=== PATIENT | female | born 1975 | race Caucasian/White ===

== ENCOUNTER 2021-09-15 09:39 | Outpatient (REF) | payer BC, SELFPAY ==
--- NOTE | 2021-09-15 08:30 | PAPFT_PTH ---
PATIENT: Haley Gayle LOC: [facility] U#:[id number] AGE/SX: 46/F ROOM: RE09/15/[address]: Renetta Colbert : 1975 BED: DIS: 09/15/2021 SPEC #: [id number] RECD: 09/15/21 18:25 STATUS: MARGARITO REAudra #: [id number] CAROLIN: 09/15/21 08:[address]: Renetta Colbert DEPT: [facility] Cytology RECD BY: Desi Quintanilla Tissues: 1 - CX/ENDOCX FOR PAP SMEARS Procedures: PAP THIN PREP/UVM Screening HPV DNA PROBE Comments: [id number]
[2021-09-15 14:41] LABS: HGB 13.6 g/dL (11.2-15.7); MCH 25.9 pg (27.0-33.0); MCHC 31.6 % (32.0-36.0); MCV 81.7 fL (80-95); MPV 12.6 fL (8.0-11.0); Platelet Count 202 10^3/uL (130-400); RBC 5.26 10^6/uL (3.93-5.22); RDW 12.4 % (11.7-14.6); RDW-SD 37.3 fL; WBC 5.19 10^3/uL (4.4-10.8)
[2021-09-15 15:17] LABS: ALT 24 U/L (14-59); AST 15 U/L (15-37); Anion Gap 8.5 mmol/L (3-11); BUN 13 mg/dL (7-18); CO2 27.5 mmol/L (21.0-32.0); CREATININE 0.5 mg/dL (0.55-1.02); Calcium 9.3 mg/dL (8.5-10.1); Calculated LDL 145 mg/dL (<100); Chloride 105 mmol/L (98-107); Cholesterol 205 mg/dL (<200); Glucose 98 mg/dL (74-106); HDL Cholesterol 45 mg/dL (40-60); Potassium 4.2 mmol/L (3.5-5.1); Sodium 141 mmol/L (136-145); Triglyceride 78 mg/dL (<150)
== END 2021-09-15 09:40 | disposition home or self-care (01) ==
LOC: NCHCN 09:39
PROVIDERS: PCP Nurse Practitioner Family; Visit Provider Nurse Practitioner Family
DX: Z00.00 Encounter for general adult medical examination without abnormal findings (principal); Z12.4 Encounter for screening for malignant neoplasm of cervix; Z11.51 Encounter for screening for human papillomavirus (HPV)
CPT/HCPCS: 80048; 80061; 85027; 88142; 84450; 84460; 87624

== ENCOUNTER 2021-11-05 02:02 | Outpatient (CLI) | payer BC, SELFPAY ==
--- NOTE | 2021-11-05 09:15 | DI.MAMMO_ITS ---
Exam(s) MAMMO SCREENING EXAM: MAMMO SCREENING CLINICAL HISTORY: SCREENING, Z12.31 TECHNIQUE: Bilateral full field digital CC and MLO mammographic images were obtained with 3D tomosyn thesis and utilizing computer aided detection (CAD). COMPARISON: None. FINDINGS: Masses/Architectural Distortion: None seen. Microcalcifications: No suspicious pleomorphic-type are seen. Skin Thickening/Nipple Retraction: None. IMPRESSION: 1. No significant interval change with no specific features of malignancy noted. 2. Unless there is more urgent need, screening mammography is recommended, as per [employer] guidelines. BI-RADS Category 1 - Negative Breast Density - Category B - Scattered areas of fibroglandular density Breast density category C or D implies that the patient has dense breast tissue. Dense breast tissue is very common and is not abnormal but dense breast tissue can make it harder to find cancer on a ma mmogram. Also, dense breast tissue may increase their breast cancer risk. This information about the result of the mammogram report was provided to the patient to raise their awareness. Use this report when you speak with the patient about their risks for breast cancer, which includes their family hist ory. At that time, you may recommend for more screening tests (Ultrasound or MRI) as they might be us eful based on their risk. A negative radiographic report should not delay biopsy if a dominant or clinically suspicious mass is present. Up to ten percent of cancers are not identified on mammography. A negative report may reinforce clinical impression. Adenosis and dense breasts may obscure an underlying neoplasm. False positive reports average 6 to 10%. Patient will receive a letter notifying them of these results.
== END 2021-11-05 02:22 ==
PROVIDERS: PCP Nurse Practitioner Family; Visit Provider Nurse Practitioner Family
DX: Z12.31 Encounter for screening mammogram for malignant neoplasm of breast (principal)
CPT/HCPCS: 77063; 77067

== ENCOUNTER 2022-05-18 11:25 | Outpatient (REF) | payer BC, SELFPAY | END 2022-05-18 11:26 | disposition home or self-care (01) | LOC: LBN 11:25 | PROVIDERS: PCP Nurse Practitioner Family; Visit Provider Physician Assistant Medical | DX: J02.9 Acute pharyngitis, unspecified (principal) | CPT/HCPCS: 87070 ==

== ENCOUNTER 2022-05-25 15:59 | Outpatient (REF) | payer BC, SELFPAY ==
[2022-05-27 10:54] LABS: Measles IgG Antibody Positive (See Note); Mumps Antibody IgG Positive (See Note)
[2022-05-27 10:57] LABS: Rubella IgG Ab (UVM) Positive (See Note)
[2022-06-01 20:17] LABS: Polio 1 Titer 1:32
[2022-06-02 19:18] LABS: B. pertussis IgG Negative (Negative); B. pertussis Value <5.00 IU/mL
== END 2022-05-25 16:00 | disposition home or self-care (01) ==
LOC: NCHCN 15:59
PROVIDERS: PCP Nurse Practitioner Family; Visit Provider Family Medicine
DX: Z13.89 Encounter for screening for other disorder (principal); Z11.59 Encounter for screening for other viral diseases; Z01.84 Encounter for antibody response examination
CPT/HCPCS: 86615; 86658; 86735; 86762; 86765

== ENCOUNTER 2022-09-21 13:24 | Outpatient (REF) | payer BC, SELFPAY ==
[2022-09-21 15:28] LABS: HCT 46.4 % (36.0-46.0); HGB 15.3 g/dL (11.2-15.7); MCH 26.2 pg (27.0-33.0); MCV 79 fL (80-95); Platelet Count 226 10^3/uL (130-400); RBC 5.85 10^6/uL (3.93-5.22); RDW-SD 37.1 fL; WBC 6.88 10^3/uL (4.4-10.8)
[2022-09-21 15:36] LABS: ALT 20 U/L (14-59); AST 18 U/L (15-37); Albumin 3.6 g/dL (3.4-5.0); Alkaline Phosphatase 129 U/L (46-116); Anion Gap 7.6 mmol/L (3-11); BUN 12 mg/dL (7-18); Bilirubin, Total 0.5 mg/dL (0.2-1.0); CO2 29.4 mmol/L (21.0-32.0); CREATININE 0.6 mg/dL (0.55-1.02); Calcium 9.2 mg/dL (8.5-10.1); Chloride 102 mmol/L (98-107); Estimated GFR 112.04 (mL/min/1.73m2); Glucose 95 mg/dL (74-106); Potassium 4.3 mmol/L (3.5-5.1); Sodium 139 mmol/L (136-145); Total Protein 7.1 g/dL (6.4-8.2)
[2022-09-21 15:47] LABS: Hemoglobin A1C 5.2 % (<5.7)
[2022-09-29 13:59] LABS: B. pertussis IgG Negative (Negative); B. pertussis Value 5.37 IU/mL
== END 2022-09-21 13:25 | disposition home or self-care (01) ==
LOC: NCHCN 13:24
PROVIDERS: PCP Nurse Practitioner Family; Visit Provider Nurse Practitioner Family
DX: Z00.00 Encounter for general adult medical examination without abnormal findings (principal)
CPT/HCPCS: 80053; 85027; 86615; 83036

== ENCOUNTER 2022-11-06 11:27 | Emergency (ER) | payer BC, SELFPAY ==
--- NOTE | 2022-11-06 11:30 | DI.RAD_ITS ---
Exam(s) XR CHEST 2V PA LATERAL EXAM: XR CHEST 2V PA LATERAL CLINICAL HISTORY: cough TECHNIQUE: 2D digital imaging was performed. COMPARISON: No exams were available for comparison FINDINGS: HEART: Normal size. Aorta: Not dilated. PULMONARY VASCULATURE: Normal. LUNGS: Clear. PLEURAL SPACE: No pleural effusion or pneumothorax. BONE:Unremarkable for age. IMPRESSION: No acute abnormality. DATA REPOSITORY: RADIATION DOSE DELIVERED:
[2022-11-06 11:34] VITALS: BP 165/79; PULSE 105; RESP 24; TEMP 37.2; O2SAT 97
--- NOTE | 2022-11-06 11:45 | ED.GENADUL_ITS ---
Discharge Plan Disposition Patient Disposition: Home Condition: Improving Discharge Details Clinical Impression: Acute bronchitis Primary Care Provider: Renetta Colbert ED Provider: Kevin Moreno Home Meds and New Rx's Prescriptions: New doxycycline hyclate 100 mg capsule 100 mg PO BID 9 Days Qty: 18 0RF Discharge Instructions Instructions: Acute Bronchitis (ED) Additional Instructions: Home to rest today. Small, frequent sips of fluids to maintain hydration. Take antibiotics as prescribed. You may be sensitive to sun and alcohol on this antibiotic. Return for any acute concerns. Medical Decision Making 47-year-old female with cough and congestion for 2 days with a history of similar for weeks time. [place] subjective fever at home but not documented. She has otherwise been well and notes a negative COVID test at home. Differential diagnosis includes bronchitis, pneumonia, viral syndrome. Patient had viral swabs obtained and is referred for chest x-ray which does not demonstrate pneumonia. Influenza and COVID testing negative. I will treat her for bronchitis with a course of doxycycline HPI General Date/Time Provider Initiated Documentation: 11/06/22 11:28 . Limitations to Documentation: no limitations . Information obtained by: patient . History of Present Illness 47 year old F presents to the emergency department with the chief complaint of Cough and congestion worse over 2 days, described as moderate, Quality is described as dull, and is localized to the chest. Patient started experiencing this day(s) and it has been intermittent. No relieving factors improve symptom(s), No exacerbating factors reported . Patient notes cough; denies fever/chills, shortness of breath and syncope. Patient did receive the following treatments prior to arrival, none Related Data Home Medications Medication Instructions Recorded Confirmed doxycycline hyclate 100 mg capsule 100 mg PO BID 9 days #18 caps 11/06/22 Previous Rx's Medication Instructions Recorded doxycycline hyclate 100 mg capsule 100 mg PO BID 9 days #18 caps 11/06/22 Allergies Allergy/AdvReac Type Severity Reaction Status Date / Time No Known Allergies Allergy Unverified 11/06/22 11:38 General Stated Complaint: RespSymp RUBEN: 3 Review of Systems Narrative: 6 systems reviewed and otherwise negative PFSH All Active Problems (Updated 11/06/22 @ 12:41 by Kevin Moreno MD) Acute bronchitis (Acute) Social History Smoking/Tobacco Use Status: Never Smoking risk assessment performed?: Yes Alcohol Intake: current Alcohol Intake frequency: a few times a month Drug use: Never Substance use type: does not use Do you feel safe at home: Yes Do you feel safe in your relationship?: Yes Exam Narrative Exam Narrative: GEN: awake, alert, oriented 3. Pleasant, well groomed, interactive. HEAD: Normocephalic, atraumatic ENT: Mucous membranes moist, oropharynx slightly erythematous, no exudate or swelling present, tympanic membranes clear bilaterally, external ear exam unremarkable EYES: PERRL, EOMI NECK: Full ROM, no ALIN, no menigismus CHEST/RESP: Nontender, clear to auscultation bilateral, no wheeze/rhonchi/rales CARDIOVASCULAR: RRR, no murmur, rub eliezer. 2+ Rad pulse bilateral ABDOMEN: Soft, nontender, no mass. +Bowel sounds EXT: Full ROM, no edema, no rash Neuro: Grossly normal neurologic exam, conversant, interactive. Psych: Speech fluent, thoughts congruent, affect normal Course Vital Signs Vital signs: Vital Signs Temperature 37.2 C 11/06/22 11:34 Pulse 105 H 11/06/22 11:34 Respiratory Rate 24 11/06/22 11:34 Blood Pressure 165/79 H 11/06/22 11:34 Pulse Oximetry 97 11/06/22 11:34 Temperature 37.2 C 11/06/22 11:34 Temperature Source Tympanic 11/06/22 11:34 Pulse 105 H 11/06/22 11:34 Respiratory Rate 24 11/06/22 11:34 Respiratory Effort Short of Breath 11/06/22 11:43 Respiratory Depth Normal 11/06/22 11:43 Blood Pressure 165/79 H 11/06/22 11:34 Blood Pressure Position Sitting 11/06/22 11:34 Pulse Oximetry 97 11/06/22 11:34 Oxygen Delivery Method Room Air 11/06/22 11:34 Oxygen Flow Rate 0 11/06/22 11:34 Pain Level 9 11/06/22 11:34
--- NOTE | 2022-11-06 12:19 | DI.VRAD_ITS ---
PROCEDURE INFORMATION: Exam: XR Chest Exam date and time: 11/06/2022 11:56 AM Age: 47 years old Clinical indication: Cough TECHNIQUE: Imaging protocol: Radiologic exam of the chest..No history of trauma or recent surgery is provided. 2image(s) are provided. Views: 2 views. COMPARISON: No relevant prior studies available. FINDINGS: Lungs: No lobar consolidation is appreciated. Pleural spaces: No pneumothorax or pleural effusion is appreciated. Heart/Mediastinum: The cardiomediastinal silhouette is normal. No cardiac decompensation is appreciated. Diaphragm: There is slight asymmetric right hemidiaphragm elevation. Bones/joints: Osseous alignment is maintained.No displaced fracture or dislocation is appreciated. There is some mild chronic degeneration of the acromioclavicular junctions with similar overall glenohumeral alignment. Soft tissues: No radiopaque foreign body or subcutaneous emphysema is appreciated. IMPRESSION: No lobar consolidation is appreciated.No acute cardiopulmonary changes are appreciated. Dictated and Authenticated by: Leonidas Jimenez MD. Ordering:RISHABH Brown MD
[2022-11-06 12:28] LABS: COVID-19 PCR Negative (Negative); Influenza A PCR Negative (Negative); Influenza B PCR Negative (Negative); RSV PCR Negative (Negative)
[2022-11-06 12:29] LABS: Source Nasopharynx
[2022-11-06] MEDS: Doxycycline Hyclate 100 MG, 2 CAPS/BTL PO (13:20)
== END 2022-11-06 13:21 | disposition home or self-care (01) ==
PROVIDERS: Emergency Provider Emergency Medicine; PCP Nurse Practitioner Family
DX: J20.9 Acute bronchitis, unspecified (principal); Z20.822 Contact with and (suspected) exposure to COVID-19
CPT/HCPCS: 87637; 99283; 71046; 99284

== ENCOUNTER 2023-10-03 13:53 | Outpatient (REF) | payer BC, SELFPAY ==
[2023-10-03 14:38] LABS: HGB 14.4 g/dL (11.2-15.7); MCH 26.5 pg (27.0-33.0); MCV 83 fL (80-95); MPV 11.4 fL (8.0-11.0); Platelet Count 264 10^3/uL (130-400); RBC 5.44 10^6/uL (3.93-5.22); RDW 13.5 % (11.7-14.6); RDW-SD 40.8 fL; WBC 7.43 10^3/uL (4.4-10.8)
[2023-10-03 15:15] LABS: ALT 28 U/L (14-59); AST 17 U/L (15-37); Albumin 3.6 g/dL (3.4-5.0); Alkaline Phosphatase 95 U/L (46-116); Anion Gap 10.3 mmol/L (3-11); BUN 14 mg/dL (7-18); Bilirubin, Total 0.4 mg/dL (0.2-1.0); CO2 28.7 mmol/L (21.0-32.0); CREATININE 0.8 mg/dL (0.55-1.02); Calcium 9.1 mg/dL (8.5-10.1); Calculated LDL 215 mg/dL (<100); Chloride 103 mmol/L (98-107); Cholesterol 285 mg/dL (<200); Glucose 101 mg/dL (74-106); HDL Cholesterol 52 mg/dL (40-60); Potassium 4.1 mmol/L (3.5-5.1); Sodium 142 mmol/L (136-145); TSH 0.42 uIU/mL (0.36-3.74); Total Protein 7.2 g/dL (6.4-8.2); Triglyceride 91 mg/dL (<150)
[2023-10-03 15:17] LABS: Hemoglobin A1C 5.6 % (<5.7)
[2023-10-03 15:38] LABS: FREE T4 0.99 ng/dL (0.76-1.46)
== END 2023-10-03 13:54 | disposition home or self-care (01) ==
LOC: NCHCN 13:53
PROVIDERS: PCP Nurse Practitioner Family; Visit Provider Nurse Practitioner Family
DX: Z00.00 Encounter for general adult medical examination without abnormal findings (principal); R63.5 Abnormal weight gain; R79.89 Other specified abnormal findings of blood chemistry
CPT/HCPCS: 80053; 80061; 85027; 83036; 84439; 84443

== ENCOUNTER 2024-10-03 13:26 | Outpatient (REF) | payer BC, SELFPAY ==
[2024-10-03 14:02] LABS: MCH 26.4 pg (27.0-33.0); MCHC 31.8 % (32.0-36.0); MCV 83 fL (80-95); MPV 11.3 fL (8.0-11.0); Platelet Count 258 10^3/uL (130-400); RBC 5.31 10^6/uL (3.93-5.22); RDW 14.4 % (11.7-14.6); RDW-SD 43.6 fL; WBC 6.49 10^3/uL (4.4-10.8)
[2024-10-03 14:45] LABS: Hemoglobin A1C 5.6 % (<5.7)
[2024-10-03 14:47] LABS: ALT 18 U/L (14-59); AST 14 U/L (15-37); Albumin 3.6 g/dL (3.4-5.0); Alkaline Phosphatase 86 U/L (46-116); Anion Gap 3.9 mmol/L (3-11); BUN 15 mg/dL (7-18); Bilirubin, Total 0.46 mg/dL (0.2-1.0); CO2 31.1 mmol/L (21.0-32.0); CREATININE 0.7 mg/dL (0.55-1.02); Calculated LDL 216 mg/dL (<100); Chloride 106 mmol/L (98-107); Cholesterol 288 mg/dL (<200); Estimated GFR 106.62 (mL/min/1.73m2); Glucose 102 mg/dL (74-106); HDL Cholesterol 57 mg/dL (40-60); Potassium 4.2 mmol/L (3.5-5.1); Sodium 141 mmol/L (136-145); Total Protein 7.1 g/dL (6.4-8.2); Triglyceride 77 mg/dL (<150)
== END 2024-10-03 13:27 | disposition home or self-care (01) ==
LOC: NCHCN 13:26
PROVIDERS: PCP Nurse Practitioner Family; Visit Provider Nurse Practitioner Family
DX: E78.5 Hyperlipidemia, unspecified (principal); Z00.00 Encounter for general adult medical examination without abnormal findings; E66.9 Obesity, unspecified
CPT/HCPCS: 80053; 80061; 85027; 83036

== ENCOUNTER 2024-10-21 04:41 | Outpatient (CLI) | payer BC, SELFPAY ==
--- NOTE | 2024-10-22 11:50 | W.NUTRFU ---
Date of service: 10/21/24 Time of Service: 16:00 Nutrition Note NOTE: Haley referred to today's nutrition visit as she struggles with her weight and would like some input/guidance on approach. We discussed other pillars of weightloss-friendly habits and reviewed stress mgt, good quality sleep and exercise (not just activity, and prioritizing strength training help with metabolic improvements) along with diet to help her start seeing some progress. We reviewed general principles like eating traditional food mostly, avoiding liquid kcals and keeping water intake high. We also discussed 3 big components to track and keep consistent - getting a good 100g protein per day, limiting added sugar to 25 grams per day and trying to keep fiber intake to at least 30grams per day. We went into these in more detail and we finished with going over menu planning resource with AI to help plan menus that work for her preferences and eating patterns (mostly vegetarian but will eat eggs, fish, dairy) Haley will play around with menu planning and pay close attention to the 3 components we reviewed. Also suggested eating more in the morning and cutting off early in the evening. She currently tries intermittent fasting but has a later eating window that may be better to move towards the front part of her day, espeically in regards to first dose of protein. She has my contact info should she have any questions or desire to follow up more consistently for accountability Time Spent in Nutritional Counseling and Treatment: 25 min
== END 2024-10-21 04:42 | disposition home or self-care (01) ==
PROVIDERS: PCP Nurse Practitioner Family; Visit Provider Dietitian, Registered
DX: Z71.3 Dietary counseling and surveillance (principal)
CPT/HCPCS: 00123; 97802